=== PATIENT | female | born 1995 | race Caucasian/White ===

== ENCOUNTER 2017-03-28 09:24 | Emergency (ER) | payer BC, MEDICAID ==
[~2017-03-28 09:24] MED LIST: PNV1TABL34 PO
[2017-03-28] MEDS ORDERED: IV NORMAL SALINE 50ML 50 ML ONE (10:14)
[2017-03-28] MEDS ORDERED: cefTRIAXone SODIUM 1 GM VIAL IV ONE (10:15)
[2017-03-28 10:23] LABS: BASO % 0 % (0-3); EOS # 0.3 x10^3/uL (0.0-0.7); EOS % 3 % (0-3); HEMATOCRIT 44.7 % (36.0-47.0); HEMOGLOBIN 15.7 g/dL (12.0-15.5); LYMPH # 2.1 x10^3/uL (1.0-4.8); LYMPH % 25 % (24-48); MEAN CORPUSCULAR HEMOGLOBIN 32 pg (25-35); MEAN CORPUSCULAR HGB CONC 35 g/dL (31-37); MEAN CORPUSCULAR VOLUME 90 fL (79-100); MONO # 0.5 x10^3/uL (0.0-1.1); MONO % 6 % (0-9); NEUT # 5.5 x10^3uL (1.8-7.7); NEUT % 66 % (31-73); PLATELET COUNT 177 x10^3/uL (140-400); RED BLOOD COUNT 4.96 x10^6/uL (3.50-5.40); RED CELL DISTRIBUTION WIDTH 12.6 % (11.5-14.5); WHITE BLOOD COUNT 8.3 x10^3/uL (4.0-11.0)
[2017-03-28] MEDS: IV NORMAL SALINE 1,000ML 1,000 ML IV SCH (10:24)
[2017-03-28] MEDS: ONDANSETRON PF 4 MG/2 ML VIAL. IV ONE (10:25)
[2017-03-28] MEDS: KETOROLAC 30 MG/ML VIAL. IV ONE (10:25)
[2017-03-28] MEDS: methylPREDNISolone SOD SUCC PF 125 MG/2 ML VIAL. IV ONE (10:31)
[2017-03-28 10:36] LABS: ALBUMIN 4.4 g/dL (3.4-5.0); ALBUMIN/GLOBULIN RATIO 1.2 (1.0-1.7); CALCIUM 9.4 mg/dL (8.5-10.1); CREATININE 0.7 mg/dL (0.6-1.0); GFR 103.7; POTASSIUM 4.1 mmol/L (3.5-5.1); TOTAL BILIRUBIN 0.7 mg/dL (0.2-1.0); TOTAL PROTEIN 8.1 g/dL (6.4-8.2)
[2017-03-28] MEDS ORDERED: AMOX1TAB61 PO (10:56)
[2017-03-28] MEDS ORDERED: PHEN100T82 PO (10:56)
[2017-03-28] MEDS ORDERED: HYDR-971 PO (10:56)
--- NOTE | 2017-03-28 11:00 | PHYS DOC ---
General Chief Complaint: PAIN ON URINATION Stated Complaint: BACK PAIN/PAIN ON URINATION Time Seen by MD: 09:36 Source: patient Exam Limitations: no limitations Problems: History of Present Illness Initial Comments Patient is 21-year-old female who comes the department with 3 days' dysuria and flank pain. Patient is obviously uncomfortable moving gingerly due to her flank pain. She says she's had frequency hesitancy and odor with urination as well as burning for the past few days. She's had no fever chills or body aches no nausea vomiting. On arrival urine dipstick is grossly positive for infection and urine negative. Patient tachycardic on arrival and in this context sepsis or hypovolemia could be possible. 1 L normal saline IV bolus and labs to rule out sepsis initiated. Timing/Duration: 1 week, getting worse Severity: severe Modifying Factors: worse with movement, improves with rest, improves with other Associated Symptoms: other Allergies: Coded Allergies: No Known Drug Allergies (Unverified , 09/10/14) Past Medical History Medical History: no pertinent history Surgical History: tonsillectomy Social History Smoker: non-smoker Alcohol: none Drugs: none Review of Systems Constitutional: denies chills, denies diaphoresis, denies fever, malaise Respiratory: denies cough, denies shortness of breath Cardiovascular: denies chest pain, denies palpitations Gastrointestinal: see HPI, denies diarrhea, denies nausea, denies vomiting Genitourinary: see HPI Musculoskeletal: see HPI, denies joint swelling, denies neck pain Psychiatric/Neurological: denies headache, denies numbness, denies paresthesia Physical Exam General Appearance: WD/WN, moderate distress Ear, Nose, Throat: hearing grossly normal, normal ENT inspection, normal pharynx Neck: non-tender, supple Respiratory: normal breath sounds, no respiratory distress Cardiovascular: normal peripheral pulses, tachycardia Gastrointestinal: soft (suprapubic tenderness without rebound or guard no masses negative Barrios negative McBurney abdomen is otherwise soft bowel sounds are normal) Back: no vertebral tenderness, CVA tenderness (R), CVA tenderness (L) Extremities: normal range of motion, non-tender, normal inspection Neurologic/Psychiatric: 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 Labs reveal hypovolemia, lactic acid normal Patient is feeling better upon recheck heart rate has normalized no evidence of sepsis she is ready for discharge. Signs and symptoms to monitor as well as indications for urgent return discussed. I discussed gvxf-ykf-mijyisu and prescription medications as well as oral hydration patient expressed agreement and understanding of the treatment plan. Departure Time of Disposition: 10:57 Disposition: 01 HOME, SELF-CARE Diagnosis: pyelonephritis Condition: GOOD Patient Instructions: Pyelonephritis, Adult, [id number] Additional Instructions: Rest, no strenuous activity. Aggressive hydration with Gatorade or water. Abfd-[id number] ibuprofen for baseline discomfort. Xyfz-lpl-mnyhnuk topical and oral Benadryl for left arm bee sting reaction. Prescription: Augmentin, [place] 5 mg quantity 6, Pyridium Take medications with food to avoid abdominal discomfort, nausea and vomiting. Cultured yogurt daily (nora constantino), or zoxy-nbr-gumgbtf probiotics to avoid severe diarrhea sometimes associated with Augmentin. Follow-up with your doctor in 7-10 days for recheck and urine culture results. Return to the ED with new or changing symptoms. JESSE ULLOA DO Mar 28, 2017 11:00
[2017-03-28 11:20] VITALS: BP 115/59
[2017-03-28 11:21] LABS: BILIRUBIN,URINE NEG (NEG); CLARITY,URINE CLOUDY; COLOR,URINE YELLOW; GLUCOSE,URINE NEG (NEG)
[2017-03-28 11:22] LABS: NITRITE,URINE NEG (NEG); UROBILINOGEN,URINE 0.2 mg/dL (0.2 mg/dL)
== END 2017-03-28 11:20 | disposition home or self-care (01) ==
LOC: ER 09:24
DX: N12 Tubulo-interstitial nephritis, not specified as acute or chronic (principal)
CPT/HCPCS: 36415; 80053; 81003; 81025; 83605; 83690; 85025; 87086; 96365; 96375; 99284; J0696; J1885; J2405; J2930; J3010; J7030

== ENCOUNTER → 2017-11-12 | Outpatient (CLI) | payer MEDICAID, OTHER ==
[~2017-11-12] MED LIST changes: +AMOX1TAB61 PO; +HYDR-971 PO; +PHEN100T82 PO
--- NOTE | 2017-11-12 22:28 | RAD ---
COMPLETE RENAL ULTRASOUND Indication: Kidney infections intermittent x3 years. Comparison: None. Procedure: Transabdominal ultrasound images are obtained of the kidneys and bladder. Findings: The kidneys demonstrate normal cortical echotexture. There is a punctate calcification in the interpolar right renal cortex. Corticomedullary differentiation is preserved. There is no hydronephrosis. The right kidney measures 11.6 x 5.6 x 4.8 cm. The left kidney measures 11.5 x 5.8 x 5 cm. The urinary bladder appears normal. Bilateral ureteral jets are identified. There is complete voiding with no significant post void residual. IMPRESSION: Unremarkable renal ultrasound. Electronically signed by: German Martell MD (11/12/2017 5:04 PM) [facility]
== END | disposition home or self-care (01) ==
LOC: US 15:23
PROVIDERS: ATTEND Physician Assistant Medical
DX: N39.0 Urinary tract infection, site not specified (principal)
CPT/HCPCS: 76770

== ENCOUNTER 2018-12-18 09:52 | Emergency (ER) | payer OTHER ==
[~2018-12-18] VITALS: Ht 177.8 cm; Wt 88.9 kg
[~2018-12-18 09:52] MED LIST changes: +HYDR-3165 PO; -HYDR-971 PO
[2018-12-18] MEDS ORDERED: IV NORMAL SALINE 1,000ML 1,000 ML IV SCH (10:08)
--- NOTE | 2018-12-18 10:12 | PHYS DOC ---
Past History Past Medical History: No Pertinent History Past Surgical History: Tonsillectomy Alcohol Use: Occasionally Drug Use: Marijuana Adult General Chief Complaint Chief Complaint: ABDOMINAL PAIN HPI HPI Patient is a 23-year-old female who presents with complaint of upper abdominal pain along with vomiting and diarrhea that started on Wednesday. She states that she's been able to keep clear liquids down. She rates pain currently at a 4 out of 10 but states that pain was much worse last night. She states that nothing is really helping with her symptoms. She does indicate symptoms are worse if she tries to eat. She denies any fever, chest pain or shortness of breath.[] Review of Systems Review of Systems Constitutional: Denies fever or chills [] Respiratory: Denies cough or shortness of breath [] Cardiovascular: No additional information not addressed in HPI [] GI: Complains of abdominal pain with vomiting and diarrhea [] : Denies dysuria or hematuria [] Musculoskeletal: Denies back pain or joint pain [] All other systems were reviewed and found to be within normal limits, except as documented in this note. Allergies Allergies Allergies Coded Allergies Type Severity Reaction Last Updated Verified No Known Drug Allergies 09/10/14 No Physical Exam Physical Exam Constitutional: Well developed, well nourished, no acute distress, non-toxic appearance. [] HENT: Normocephalic, atraumatic, bilateral external ears normal, oropharynx moist, no oral exudates, nose normal. [] Eyes: PERRLA, EOMI, conjunctiva normal, no discharge. [] Neck: Normal range of motion, no tenderness, supple, no stridor. [] Cardiovascular:Heart rate regular rhythm, no murmur [] Lungs & Thorax: Bilateral breath sounds clear to auscultation [] Abdomen: Bowel sounds normal, soft, with epigastric tenderness. [] Skin: Warm, dry, no erythema, no rash. [] Extremities: No tenderness, no cyanosis, no clubbing, ROM intact, no edema. [] Neurologic: Alert and oriented X 3, no focal deficits noted. [] Current Patient Data Vital Signs Vital Signs Date Time Temp Pulse Resp B/P (MAP) Pulse Ox O2 Delivery O2 Flow Rate FiO2 12/18/18 10:04 97.9 71 18 97 Room Air EKG EKG [] Radiology/Procedures Radiology/Procedures [] Impressions: PROCEDURE: CT ABD PELV W/ IV CONTRST ONLY PQRS Compliance Statement: One or more of the following individualized dose reduction techniques were utilized for this examination: 1. Automated exposure control 2. Adjustment of the mA and/or kV according to patient size 3. Use of iterative reconstruction technique CT ABD PELV W/ IV CONTRST ONLY Clinical Indication: Left-sided abdominal pain x3 days. Comparison: CT abdomen and pelvis with contrast September 12, 2018. Technique: Helical CT imaging of the abdomen and pelvis is performed after 75 cc of Omnipaque 300 IV contrast. Oral contrast not given. Findings: Lung bases are clear. Cardiac size normal. The liver, gallbladder, spleen, pancreas, adrenal glands, abdominal aorta, and kidneys are normal. Stomach is unremarkable. There is no dilated small bowel. The appendix is normal. There are several upper limits of normal in size pericecal lymph nodes, similar to prior study. No colon wall thickening is identified. No abdominal adenopathy or free fluid. There is left ovary functional cyst measuring 2.8 cm. 1 cm right ovarian cyst. Small right ovarian follicles. Anteverted uterus. Tampon in the vagina. Trace pelvic free fluid, probably physiologic. Urinary bladder is normal. Schmorl's node superior endplates of T12, L1, and L5. IMPRESSION: 1. Small left ovary functional cyst. Trace pelvic free fluid. Findings are probably physiologic. 2. There are several upper limits of normal in size pericecal lymph nodes, similar to prior study. Mesenteric adenitis is a consideration. Electronically signed by: German Martell MD (12/18/2018 12:06 PM) [facility] Course & Med Decision Making Course & Med Decision Making Pertinent Labs and Imaging studies reviewed. (See chart for details) [] Dragon Disclaimer Dragon Disclaimer This electronic medical record was generated, in whole or in part, using a voice recognition dictation system. Departure Departure: Impression: Primary Impression: Mesenteric adenitis Additional Impression: Vomiting and diarrhea Disposition: 01 HOME, SELF-CARE Condition: STABLE Referrals: ROB CASTILLO (PCP) Patient Instructions: Diarrhea, Mesenteric Adenitis, Nausea and Vomiting Scripts Sulfamethoxazole/Trimethoprim (BACTRIM DS TABLET) 1 Each Tablet 1 TAB PO BID for infection, #14 TAB Prov: SALAS LÓPEZ Jr. DO 12/18/18 Diphenoxylate Hcl/Atropine (LOMOTIL TABLET) 1 Each Tablet 1 TAB PO TID PRN for DIARRHEA, #15 TAB Prov: SALAS LÓPEZ Jr. DO 12/18/18 Hydrocodone Bit/Acetaminophen (NORCO 5-325 TABLET) 1 Each Tablet 1 TAB PO PRN Q6HRS PRN for PAIN, #12 TAB 0 Refills Prov: SALAS LÓPEZ Jr. DO 12/18/18 Ondansetron Hcl (ZOFRAN) 4 Mg Tablet 4 MG PO Q6HRS PRN for NAUSEA/VOMITING, #10 TAB Prov: SALAS LÓPEZ Jr. DO 12/18/18 Problem Qualifiers SALAS LÓPEZ Jr. DO Dec 18, 2018 10:12
[2018-12-18 10:24] LABS: BASO % 1 % (0-3); EOS # 0.2 x10^3/uL (0.0-0.7); EOS % 3 % (0-3); HEMATOCRIT 44.2 % (36.0-47.0); HEMOGLOBIN 15.1 g/dL (12.0-15.5); LYMPH # 1.5 x10^3/uL (1.0-4.8); LYMPH % 24 % (24-48); MEAN CORPUSCULAR HEMOGLOBIN 32 pg (25-35); MEAN CORPUSCULAR HGB CONC 34 g/dL (31-37); MEAN CORPUSCULAR VOLUME 94 fL (79-100); MONO # 0.3 x10^3/uL (0.0-1.1); MONO % 5 % (0-9); NEUT # 4.3 x10^3uL (1.8-7.7); NEUT % 68 % (31-73); PLATELET COUNT 180 x10^3/uL (140-400); RED BLOOD COUNT 4.73 x10^6/uL (3.50-5.40); RED CELL DISTRIBUTION WIDTH 12.9 % (11.5-14.5); WHITE BLOOD COUNT 6.3 x10^3/uL (4.0-11.0)
[2018-12-18 10:32] LABS: ALBUMIN 4.4 g/dL (3.4-5.0); ALBUMIN/GLOBULIN RATIO 1.3 (1.0-1.7); CALCIUM 9.2 mg/dL (8.5-10.1); CREATININE 0.7 mg/dL (0.6-1.0); POTASSIUM 3.9 mmol/L (3.5-5.1); TOTAL BILIRUBIN 0.6 mg/dL (0.2-1.0); TOTAL PROTEIN 7.7 g/dL (6.4-8.2)
[2018-12-18] MEDS ORDERED: ONDANSETRON PF 4 MG/2 ML VIAL. IV ONE (10:45)
[2018-12-18 10:57] LABS: BACTERIA,URINE MANY /HPF (0-FEW); BILIRUBIN,URINE NEG (NEG); CLARITY,URINE CLOUDY; COLOR,URINE AMBER; GLUCOSE,URINE NEG (NEG); NITRITE,URINE POS (NEG); SQUAMOUS EPITHELIAL CELL,UR FEW /LPF; UROBILINOGEN,URINE 0.2 mg/dL (0.2 mg/dL)
[2018-12-18 11:05] LABS: BARBITURATES NEG (NEG); BENZODIAZEPINES NEG (NEG); CANNABINOIDS POS (NEG); COCAINE NEG (NEG); METHADONE NEG (NEG); OPIATES POS (NEG); PHENCYCLIDINE NEG (NEG)
[2018-12-18 11:06] LABS: AMPHETAMINE/METHAMPHETAMINE NEG (NEG)
[2018-12-18] MEDS ORDERED: IOHEXOL 300 MG/ML 75 ML VIAL. IV ONE (11:30)
--- NOTE | 2018-12-18 12:09 | RAD ---
PQRS Compliance Statement: One or more of the following individualized dose reduction techniques were utilized for this examination: 1. Automated exposure control 2. Adjustment of the mA and/or kV according to patient size 3. Use of iterative reconstruction technique CT ABD PELV W/ IV CONTRST ONLY Clinical Indication: Left-sided abdominal pain x3 days. Comparison: CT abdomen and pelvis with contrast September 12, 2018. Technique: Helical CT imaging of the abdomen and pelvis is performed after 75 cc of Omnipaque 300 IV contrast. Oral contrast not given. Findings: Lung bases are clear. Cardiac size normal. The liver, gallbladder, spleen, pancreas, adrenal glands, abdominal aorta, and kidneys are normal. Stomach is unremarkable. There is no dilated small bowel. The appendix is normal. There are several upper limits of normal in size pericecal lymph nodes, similar to prior study. No colon wall thickening is identified. No abdominal adenopathy or free fluid. There is left ovary functional cyst measuring 2.8 cm. 1 cm right ovarian cyst. Small right ovarian follicles. Anteverted uterus. Tampon in the vagina. Trace pelvic free fluid, probably physiologic. Urinary bladder is normal. Schmorl's node superior endplates of T12, L1, and L5. IMPRESSION: 1. Small left ovary functional cyst. Trace pelvic free fluid. Findings are probably physiologic. 2. There are several upper limits of normal in size pericecal lymph nodes, similar to prior study. Mesenteric adenitis is a consideration. Electronically signed by: German Martell MD (12/18/2018 12:06 PM) [facility]
[2018-12-18] MEDS ORDERED: DIPHENOXYLATE/ATROPINE TABLET. PO ONE (13:00)
[2018-12-18] MEDS ORDERED: IV NORMAL SALINE 50ML 50 ML ONE (13:10)
[2018-12-18] MEDS ORDERED: cefTRIAXone SODIUM 1 GM VIAL ONE (13:10)
[2018-12-18] MEDS ORDERED: SULF1TAB24 PO (13:26)
[2018-12-18] MEDS ORDERED: ONDA4TAB7 PO (13:26)
[2018-12-18] MEDS ORDERED: HYDR-3165 PO (13:26)
[2018-12-18] MEDS ORDERED: DIPH1TAB PO (13:26)
[2018-12-18 13:59] VITALS: BP 132/56
== END 2018-12-18 13:58 | disposition home or self-care (01) ==
LOC: ER 09:52
DX: I88.0 Nonspecific mesenteric lymphadenitis (principal); R11.11 Vomiting without nausea; R19.7 Diarrhea, unspecified
CPT/HCPCS: 36415; 74177; 80053; 80307; 81001; 81025; 83690; 85025; 87086; 96361; 96365; 96366; 96375; 96376; 99285; J0696; J2405; J3010; J7030